=== PATIENT | female | born 1985 | race American Indian/Alaskan Native ===

== ENCOUNTER 2017-05-08 11:08 | Emergency (ER) | payer SELFPAY ==
[2017-05-08] MEDS ORDERED: NORCO 7.5/325 PO ONE (15:31)
--- NOTE | 2017-05-08 15:31 | Emergency Department Report ---
ED Female HPI - General Chief complaint: Urogenital-Female Stated complaint: VAGINAL SWELLING/PAIN Time Seen by Provider: 05/08/17 14:49 Source: patient Mode of arrival: Ambulatory Limitations: No Limitations - History of Present Illness Initial comments: This is a 31 y.o. female that presents with swelling to left side of vagina for 2 days. Patient states he noticed pain 2 months ago but continued doing sitz bath with some improvement of symptoms. She never followed up with doctor. Reports waking up yesterday in sever pain and unable to wear underwear or tolerate touch. She is having sinus congestion that is usual with seasonal changes. Reports having tenderness and cyst to nipple on left breast but currently not experiencing pain or mass. Denies discharge, odor, itching, frequency, and urgency. MD Complaint: other (cyst to left labia majora) -: days(s) (2) Location: labia Radiation: non-radiating Severity: severe Severity scale (0 -10): 10 Quality: aching Consistency: constant Improves with: none Worsens with: movement Are you Now?: No Last Menstrual Period: 05/04/17 (currently on menses) EDC: 02/08/18 Associated Symptoms: denies other symptoms - Related Data Sexually active: Yes : 2 Para: 0 A: 2 (miscarriage) Previous Rx's Medication Instructions Recorded Last Taken Type Cetirizine HCl [Zyrtec] 10 mg PO DAILY #30 tablet 05/08/17 Unknown Rx Fluconazole [Diflucan] 150 mg PO ONCE #1 tablet 05/08/17 Unknown Rx Ibuprofen [Motrin 600 MG tab] 600 mg PO Q8H PRN #15 tablet 05/08/17 Unknown Rx Sulfamethoxazole/Trimethoprim 1 each PO BID 10 Days #20 tablet 05/08/17 Unknown Rx [Bactrim DS TAB] Allergies Allergy/AdvReac Type Severity Reaction Status Date / Time Penicillins Allergy Unknown Verified 05/08/17 11:38 ED Review of Systems ROS: Stated complaint: VAGINAL SWELLING/PAIN Other details as noted in HPI Constitutional: denies: chills, fever ENT: congestion. denies: ear pain, throat pain Respiratory: denies: cough, shortness of breath, wheezing Cardiovascular: denies: chest pain, palpitations Gastrointestinal: denies: abdominal pain, nausea, diarrhea Genitourinary: other (painful cyst on left labia majora). denies: urgency, dysuria, discharge Skin: denies: rash, lesions Neurological: denies: headache, weakness, paresthesias ED Past Medical Hx - Past Medical History Previous Medical History?: Yes Hx Asthma: Yes Additional medical history: anemia - Surgical History Past Surgical History?: Yes Additional Surgical History: - Social History Smoking Status: Current Every Day Smoker Substance Use Type: Alcohol, Marijuana, Other - Medications Home Medications: Home Medications Medication Instructions Recorded Confirmed Last Taken Type Cetirizine HCl [Zyrtec] 10 mg PO DAILY #30 tablet 05/08/17 Unknown Rx Fluconazole [Diflucan] 150 mg PO ONCE #1 tablet 05/08/17 Unknown Rx Ibuprofen [Motrin 600 MG tab] 600 mg PO Q8H PRN #15 tablet 05/08/17 Unknown Rx Sulfamethoxazole/Trimethoprim 1 each PO BID 10 Days #20 tablet 05/08/17 Unknown Rx [Bactrim DS TAB] ED Physical Exam - General Limitations: No Limitations General appearance: alert, in no apparent distress - ENT ENT exam: Present: normal orophraynx, mucous membranes moist, other (swollen pale turbinates bilaterally, clear discharge) - Neck Neck exam: Present: normal inspection, full ROM. Absent: lymphadenopathy - Respiratory Respiratory exam: Present: normal lung sounds bilaterally. Absent: respiratory distress, wheezes, rales, rhonchi, stridor - Cardiovascular Cardiovascular Exam: Present: regular rate, normal rhythm, normal heart sounds. Absent: systolic murmur, diastolic murmur, rubs, gallop - GI/Abdominal GI/Abdominal exam: Present: soft, normal bowel sounds. Absent: distended, tenderness, guarding, rebound, rigid - External exam: Present: erythema, swelling, lesions (2 cm nodule, left labia majora, tender, erythematous) - Neurological Exam Neurological exam: Present: alert, oriented X3 - Psychiatric Psychiatric exam: Present: normal affect, normal mood - Skin Skin exam: Present: warm, dry, intact, normal color. Absent: rash ED Course Vital Signs 05/08/17 05/08/17 05/08/17 11:32 15:35 16:07 Temperature 98.6 F Pulse Rate 112 H 88 Respiratory 20 18 20 Rate Blood Pressure 104/68 107/72 O2 Sat by Pulse 99 100 Oximetry - I & D Left Lateral Vagina Type of Procedure: Simple Site: left labia majora Blade Size: 11 I & D Procedure: betadine prep, sterile drapes applied, gauze wick placed Progress: The area was prepared and draped in the usual, sterile manner. The site was anesthetized with 3 cc of 1% lidocaine without epinephrine. A linear incision along the local skin lines was made and the purulent material expressed. The abcess was explored thoroughly and sequestered pockets were opened. Bleeding was minimal. Packing: idodoform Followup: The patient tolerated the procedure well without complications. Standard post-procedure care was explained and return precautions are given. ED Medical Decision Making - Medical Decision Making This is a 31 y.o. female that presents with a painful bartholin cyst to left labia majora for 3 days. No history of prior abscess. Patient is stable and examined by me. Physical assessment of 2 cm fluctuance nodule to labia majora. No acute signs of distress noted. Given norco 7.5 mg po once in ER. I&D refer to note. Discussed plan to start bactrim DS, ibuprofen, diflucan for post antibiotic yeast infection, and cetirizine for allergic rhinitis with patient. Educated patient on follow up plan to have packing removed and wound reassessed in 2-3 days. Patient agrees to ED plan of care. Discharged home and follow up with PCP in 2-3 days. Critical care attestation.: If time is entered above; I have spent that time in minutes in the direct care of this critically ill patient, excluding procedure time. ED Disposition Clinical Impression: Bartholin cyst Allergic rhinitis Qualifiers: Allergic rhinitis trigger: pollen Allergic rhinitis seasonality: seasonal Qualified Code(s): J30.1 - Allergic rhinitis due to pollen Disposition: DC- TO HOME OR SELFCARE Is pt being admited?: No Does the pt Need Aspirin: No Condition: Stable Instructions: Allergic Rhinitis (ED), Bartholin Cyst (ED), Incision and Drainage (ED) Additional Instructions: Keep packing in place for 2-3 days. Return to ER or f/u with PCP to have packing removed and wound reassessed. Complete full round of bactrim DS antibiotic as prescribed. Follow up with PCP or ER in 2-3 days. Return to ER if foul smelling discharge, swelling, or severe pain to wound. Prescriptions: Cetirizine HCl [Zyrtec] 10 mg PO DAILY #30 tablet Fluconazole [Diflucan] 150 mg PO ONCE #1 tablet Ibuprofen [Motrin 600 MG tab] 600 mg PO Q8H PRN #15 tablet PRN Reason: Pain Sulfamethoxazole/Trimethoprim [Bactrim DS TAB] 1 each PO BID 10 Days #20 tablet Referrals: [facility] [Outside] - 3-5 Days [facility] [Outside] - 3-5 Days [facility] [Outside] - 3-5 Days Forms: Work/School Release Form(ED) Time of Disposition: 17:43 Print Language: SERBIAN
[2017-05-08 16:13] VITALS: BP 107/72
[2017-05-08] MEDS ORDERED: BACTRIM DS PO ONE (18:10)
== END 2017-05-08 18:14 | disposition home or self-care (01) ==
LOC: ED 11:08
DX: N75.0 Cyst of Bartholin's gland (principal); J45.909 Unspecified asthma, uncomplicated; F17.200 Nicotine dependence, unspecified, uncomplicated; F12.10 Cannabis abuse, uncomplicated; Z86.2 Personal history of diseases of the blood and blood-forming organs and certain disorders involving the immune mechanism; Z88.0 Allergy status to penicillin

== ENCOUNTER 2017-05-11 01:08 | Emergency (ER) | payer OTHER ==
[2017-05-11] MEDS ORDERED: ZOFRAN ODT PO ONE (03:02)
[2017-05-11] MEDS ORDERED: NACL 0.9% 1000 ML 1,000 ML IV ONE (07:04)
--- NOTE | 2017-05-11 07:47 | Emergency Department Report ---
ED N/V/D HPI - General Chief complaint: Nausea/Vomiting/Diarrhea Stated complaint: PACKING REMOVAL Time Seen by Provider: 05/11/17 07:03 Source: patient Mode of arrival: Ambulatory Limitations: No Limitations - History of Present Illness Initial comments: This is a 31-year-old female that presents nontoxic, well nourished in appearance, no acute signs of distress presents to the ED for abscess packing removal. Patient stated that she also started to have nausea, vomiting, and dizziness x2 days. Patient stated this started after taking Bactrim. Patient stated it is only triggered after taking Bactrim. Patient stated last vomit was last night after she took bactrim. Patient denies any abdominal pain, pelvic pain, back pain, chest pain, short of breath, fever, chills, nausea, vomiting, headache or stiff neck. Patient denies any abdominal pain, back pain, fever, chills, chest pain, shortness of breath, headache, stiff neck, numbness, tingling. Patient denies any urinary symptoms. Patient states allergies to penicillin with past medical history of anemia. MD complaint: nausea, vomiting, other (dizziness) -: days(s) (2) Description of Vomiting: food contents Associated Abdominal Pain: No Radiation: none Pain Scale: 0 Improves with: none Worsens with: other (after taking Bactrim) Associated Symptoms: denies: myalgias, chest pain, cough, diaphoresis, fever/ chills, headaches, loss of appetite, malaise, rash, dysuria, shortness of breath , syncope, weakness - Related Data Previous Rx's Medication Instructions Recorded Last Taken Type Cetirizine HCl [Zyrtec] 10 mg PO DAILY #30 tablet 05/08/17 Unknown Rx Fluconazole [Diflucan] 150 mg PO ONCE #1 tablet 05/08/17 Unknown Rx Ibuprofen [Motrin 600 MG tab] 600 mg PO Q8H PRN #15 tablet 05/08/17 Unknown Rx Sulfamethoxazole/Trimethoprim 1 each PO BID 10 Days #20 tablet 05/08/17 Unknown Rx [Bactrim DS TAB] Metoclopramide [Reglan] 10 mg PO TID PRN #30 tab 05/11/17 Unknown Rx metroNIDAZOLE [Flagyl] 500 mg PO Q12HR #14 tab 05/11/17 Unknown Rx Allergies Allergy/AdvReac Type Severity Reaction Status Date / Time Penicillins Allergy Unknown Verified 05/08/17 11:38 ED Review of Systems ROS: Stated complaint: PACKING REMOVAL Other details as noted in HPI Constitutional: denies: chills, fever Eyes: denies: eye pain, eye discharge, vision change ENT: denies: ear pain, throat pain Respiratory: denies: cough, shortness of breath, wheezing Cardiovascular: denies: chest pain, palpitations Endocrine: no symptoms reported Gastrointestinal: nausea, vomiting. denies: abdominal pain, diarrhea, constipation Genitourinary: denies: urgency, dysuria, discharge Musculoskeletal: denies: back pain, joint swelling, arthralgia Skin: denies: rash, lesions Neurological: denies: headache, weakness, paresthesias Psychiatric: denies: anxiety, depression Hematological/Lymphatic: denies: easy bleeding, easy bruising ED Past Medical Hx - Past Medical History Hx Asthma: Yes Additional medical history: anemia - Surgical History Additional Surgical History: - Social History Smoking Status: Current Every Day Smoker Substance Use Type: Alcohol - Medications Home Medications: Home Medications Medication Instructions Recorded Confirmed Last Taken Type Cetirizine HCl [Zyrtec] 10 mg PO DAILY #30 tablet 05/08/17 Unknown Rx Fluconazole [Diflucan] 150 mg PO ONCE #1 tablet 05/08/17 Unknown Rx Ibuprofen [Motrin 600 MG tab] 600 mg PO Q8H PRN #15 tablet 05/08/17 Unknown Rx Sulfamethoxazole/Trimethoprim 1 each PO BID 10 Days #20 tablet 05/08/17 Unknown Rx [Bactrim DS TAB] Metoclopramide [Reglan] 10 mg PO TID PRN #30 tab 05/11/17 Unknown Rx metroNIDAZOLE [Flagyl] 500 mg PO Q12HR #14 tab 05/11/17 Unknown Rx ED Physical Exam - General Limitations: No Limitations General appearance: alert, in no apparent distress - Head Head exam: Present: atraumatic, normocephalic - Eye Eye exam: Present: normal appearance Pupils: Present: normal accommodation - ENT ENT exam: Present: normal exam, mucous membranes moist - Neck Neck exam: Present: normal inspection, full ROM. Absent: tenderness, meningismus, lymphadenopathy, thyromegaly - Respiratory Respiratory exam: Present: normal lung sounds bilaterally. Absent: respiratory distress, wheezes, rales, rhonchi, chest wall tenderness, accessory muscle use, decreased breath sounds, prolonged expiratory - Cardiovascular Cardiovascular Exam: Present: regular rate, normal rhythm, normal heart sounds. Absent: bradycardia, tachycardia, irregular rhythm, systolic murmur, diastolic murmur, rubs, gallop - GI/Abdominal GI/Abdominal exam: Present: soft, normal bowel sounds. Absent: distended, tenderness, guarding, rebound, rigid, diminished bowel sounds - Expanded GI/Abdominal Exam Expanded GI/Abdominal exam: Absent: psoas sign, obturator sign, heel tap sign, Moody's sign, Rovsing's sign, tenderness at Mcburney's Point, ascites - Extremities Exam Extremities exam: Present: normal inspection, full ROM, normal capillary refill. Absent: tenderness, pedal edema, joint swelling, calf tenderness - Back Exam Back exam: Present: normal inspection, full ROM - Neurological Exam Neurological exam: Present: alert, oriented X3, normal gait - Psychiatric Psychiatric exam: Present: normal affect, normal mood - Skin Skin exam: Present: warm, dry, intact, normal color. Absent: rash ED Course Vital Signs 05/11/17 05/11/17 05/11/17 02:38 08:30 09:53 Temperature 98.5 F Pulse Rate 84 71 Pulse Rate [ 70 Lying] Pulse Rate [ 74 Sitting] Respiratory 16 Rate Blood Pressure 106/72 Blood Pressure 100/49 [Lying] Blood Pressure 114/75 [Right] Blood Pressure 115/74 [Sitting] O2 Sat by Pulse 99 99 Oximetry - Reevaluation(s) Reevaluation #1: 05/11/17 07:52 Patient is speaking in full sentences with no signs of distress noted. ED Medical Decision Making - Lab Data Result diagrams: 05/11/17 08:22 05/11/17 08:22 - Medical Decision Making This is a 31-year-old female that presents with nausea, vomiting and dizziness and packing removal. Patient is stable and was examined by me. Sales Engagement Manager present during packing removal of the Bartholin's cyst that was placed on left labia majora. Labs obtained and within normal limits. Orthostatic vitals within normal limits. There is no abdominal pain or distention. Patient did receive 1 L of normal saline and Zofran with no relief and stated still had been vomiting. PAtient then received Reglan and patient tolerated well by mouth challenge has been obtained patient tolerated with no nausea vomiting. Due to symptoms of n/v with no relief of medications a CT with contrast obtained and dictated by the radiologist with possible PID and requested for US to r/u gestional sac. US within normal limits and no sac noted. Patient receivd 1G of reocphin and azithroymcin in the ED for PID. Patient stated symptoms have subsided after reglan. Patient was instructed to continue taking antibiotics as prescribed and patient receives Reglan discharge. Patient was given precautions and to return to emergency room if symptoms worsen. Patient was instructed to Follow-up with a primary care doctor in 3-5 days or if symptoms worsen and continue return to emergency room as soon as possible. At time of discharge, the patient does not seem toxic or ill in appearance. No acute signs of distress noted. Patient agrees to discharge treatment plan of care. No further questions noted by the patient. Critical care attestation.: If time is entered above; I have spent that time in minutes in the direct care of this critically ill patient, excluding procedure time. ED Disposition Clinical Impression: Dizziness, Abscess packing removal, PID (acute pelvic inflammatory disease) Nausea & vomiting Qualifiers: Vomiting type: unspecified Vomiting Intractability: non-intractable Qualified Code(s): R11.2 - Nausea with vomiting, unspecified Disposition: DC-01 TO HOME OR SELFCARE Is pt being admited?: No Does the pt Need Aspirin: No Condition: Stable Instructions: Metoclopramide (By mouth), Ondansetron (By mouth), Pelvic Inflammatory Disease (ED), Acute Nausea and Vomiting (ED), Dizziness (ED) Additional Instructions: Follow-up with a primary care doctor/CENTRAL STERILIZATION TECHNICIAN in 3-5 days or if symptoms worsen and continue return to emergency room as soon as possible. Continue taking antibiotics as prescribed. Do not consume any alcohol while taking antibiotics Prescriptions: Metoclopramide [Reglan] 10 mg PO TID PRN #30 tab PRN Reason: Nausea metroNIDAZOLE [Flagyl] 500 mg PO Q12HR #14 tab Referrals: [facility] [Outside] - 3-5 Days [facility] [Outside] - 3-5 Days DAWNA BARNARD MD [Primary Care Provider] - 3-5 Days PRIMARY CARE, [Referring] - 3-5 Days MYRON NICOLAS MD [Staff Physician] - 3-5 Days ALEA VANESSA MD [Staff Physician] - 3-5 Days Forms: Work/School Release Form(ED)
[2017-05-11 08:11] LABS: Bacteria,Urine 1+ /HPF (Negative); Bilirubin,Urine NEG (Negative); Blood,Urine NEG (Negative); Color,Urine Yellow (Yellow); Protein,Urine <15 mg/dL mg/dL (Negative); Urobilinogen,Urine < 2.0 mg/dL (<2.0)
[2017-05-11 08:40] LABS: Basophils % (Auto) 0.2 % (0.0-1.8); Eosinophils # (Auto) 0.1 K/mm3 (0.0-0.4); Eosinophils % (Auto) 1.2 % (0.0-4.3); Hematocrit 37.3 % (30.3-42.9); Hemoglobin 12.7 gm/dl (10.1-14.3); Lymphocytes # (Auto) 1.6 K/mm3 (1.2-5.4); Lymphocytes % (Auto) 20.1 % (13.4-35.0); Mean Corpuscular HGB Conc 34 % (30-34); Mean Corpuscular Hemoglobin 33 pg (28-32); Mean Corpuscular Volume 97 fl (79-97); Monocytes # (Auto) 0.8 K/mm3 (0.0-0.8); Monocytes % (Auto) 9.6 % (0.0-7.3); Platelet Count 245 K/mm3 (140-440); Red Blood Count 3.83 M/mm3 (3.65-5.03); Red Cell Distribution Width 13.2 % (13.2-15.2)
[2017-05-11] MEDS ORDERED: ZOFRAN IV ONE (08:52)
[2017-05-11 09:19] LABS: BUN/Creatinine Ratio 8; Blood Urea Nitrogen 4 mg/dL (7-17); Calcium 8.5 mg/dL (8.4-10.2); Hemolysis Index 39
[2017-05-11 09:55] VITALS: BP 100/49
[2017-05-11] MEDS ORDERED: REGLAN IV ONE (10:15)
--- NOTE | 2017-05-11 11:18 | Cat Scan Report ---
CT ABDOMEN AND PELVIS WITH CONTRAST: 05/11/17 01:08:00 CLINICAL: Abdominal pain with nausea and vomiting. Negative test. COMPARISON: None. TECHNIQUE: Volumetric acquisition and 1.25 millimeter scan reconstructions after the uneventful intravenous injection of 100 cc Omnipaque 300. Consent was obtained prior to the administration of contrast. Oral contrast was not given. FINDINGS: Abdomen: The lung bases are clear.Small right hepatic cysts but otherwise normal liver. The gallbladder and bile ducts are normal. Normal stomach, duodenum, pancreas and spleen. Normal aorta and inferior vena cava. Normal adrenal glands and kidneys. The renal collecting systems and ureters are nondilated. No urinary calculus, cyst or mass. Subtle proximal and distal small bowel loops are fluid-filled and mildly distended but most of the small bowel is nondistended.The ascending, transverse and descending colon are filled with stool. Appendix is not well demonstrated. However, no signs to suggest acute appendicitis. No ascites and no pneumoperitoneum. Pelvis: The uterus is normal size and measures 8.7 x 5.2 x 4.2 cm. Moderate fluid distends the uterine cavity and there is a ring like structure to the left of midline which is suggestive of an intrauterine gestational sac.The ovaries are moderately large and contain numerous cysts. The ovaries are located in the cul-de-sac. A dominant right ovarian cyst measures 1.6 cm. Moderate fluid in the cul-de-sac and enhancement of the posterior pelvic peritoneum. The urinary bladder, rectum and sigmoid colon are normal. No pelvic mass. Bone windows demonstrate no bone lesion. IMPRESSION:1. Normal upper abdomen. 2. The appendix is not imaged but there are no signs to suggest acute appendicitis. 3. Fluid in the uterine cavity with suggestion of an intrauterine gestational sac. Given that the test is negative, this may be a failed intrauterine . Consider endovaginal pelvic ultrasound for further evaluation. 4. Relatively large ovaries with numerous small cysts. Given the free pelvic fluid, appearance of the ovaries and enhancement of the pelvic peritoneum, PID should be a consideration. However, no TOA identified.
[2017-05-11] MEDS ORDERED: ROCEPHIN/NS 1 GM/50 ML 1 GM/50 ML BAG IV ONE (11:43)
[2017-05-11] MEDS ORDERED: ZITHROMAX PO ONE (11:44)
[2017-05-11] MEDS ORDERED: cefTRIAXone 1 GM in NACL 0.9% 20 ML IV ONE (12:30)
--- NOTE | 2017-05-11 13:02 | Ultrasound Report ---
TRANSABDOMINAL AND TRANSVAGINAL PELVIC ULTRASOUND: 05/11/17 01:08:00 CLINICAL: Abdominal pain with possible IUP suggested by today's CT pelvis. FINDINGS: Transabdominal and transvaginal pelvic ultrasound demonstrated a normal uterus measuring 8.5 x 4.4 x 4.8 cm. No intrauterine gestational sac or fetus identified. The endometrium is normal and measures 9.5 mm AP thickness. A 2.0 cm dominant follicle of the right ovary. The right ovary measures 4.4 x 3.2 x 3.7cm. A 1.2 cm dominant follicle the left ovary. The left ovary measures 3.4 x 2.2 x 3.0cm. No adnexal mass. Mild free pelvic fluid. Normal urinary bladder. IMPRESSION: Normal uterus and ovaries. No evidence of intrauterine .
[2017-05-11] MEDS ORDERED: ZITHROMAX ONE (13:54)
== END 2017-05-11 15:07 | disposition home or self-care (01) ==
LOC: ED 01:08
DX: Z48.00 Encounter for change or removal of nonsurgical wound dressing (principal); R11.2 Nausea with vomiting, unspecified; R42 Dizziness and giddiness; N73.0 Acute parametritis and pelvic cellulitis; F17.200 Nicotine dependence, unspecified, uncomplicated; J45.909 Unspecified asthma, uncomplicated; Z88.0 Allergy status to penicillin
CPT/HCPCS: 36415; 74177; 76830; 76856; 80048; 81001; 84703; 85025; 96361; 96365; 96366; 96375; 99284; J0696; J2405; J2765; J7030; Q9967; Q0162